=== PATIENT | female | born 1990 | race Hispanic/Latino ===

== ENCOUNTER 2018-10-05 00:35 | Emergency (ER) | payer OTHER | END 2018-10-05 01:35 | disposition home or self-care (01) | LOC: EDH 00:35 | DX: S06.0X0A Concussion without loss of consciousness, initial encounter (principal); S76.911A Strain of unspecified muscles, fascia and tendons at thigh level, right thigh, initial encounter; Z98.890 Other specified postprocedural states; V49.9XXA Car occupant (driver) (passenger) injured in unspecified traffic accident, initial encounter; Y93.89 Activity, other specified; Y92.89 Other specified places as the place of occurrence of the external cause; Y99.8 Other external cause status | CPT/HCPCS: 99281 ==

== ENCOUNTER 2023-03-04 19:44 | Emergency (ER) | payer BC, OTHER ==
[~2023-03-04] VITALS: Ht 152.4 cm; Wt 68.0 kg
[2023-03-05 01:07] LABS: RAPID GROUP A STREP negative (NEGATIVE)
[2023-03-05 01:10] LABS: SARS-CoV-2, RNA, NAAT NEGATIVE SARS CoV-2 (NEGATIVE)
[2023-03-05 01:16] LABS: INFLUENZA TYPE A Negative For Type A (NEGATIVE); INFLUENZA TYPE B Negative For Type B (NEGATIVE)
[2023-03-05] MEDS ORDERED: LACTATED RINGERS 1000ML 1,000 ML IV ONE (01:30)
[2023-03-05] MEDS ORDERED: GLUCAGON 1MG KIT 1 MG ML IV SCH (01:30)
[2023-03-05] MEDS ORDERED: METOCLOPRAMIDE 10 MG/2 ML VIAL IVP ONE (01:30)
[2023-03-05] MEDS ORDERED: NITROGLYCERIN 1GM OINT 1 INCH/1GM TD ONE (01:30)
[2023-03-05] MEDS ORDERED: FAMOTIDINE 20MG VIAL IV ONE (01:30)
[2023-03-05 01:44] LABS: HEMATOCRIT 36.6 % (36-48); MEAN CORPUSCULAR HEMOGLOBIN 24.9 pg (27.0-33.0); PLATELET COUNT (AUTO) 272 K/uL (130-400); RED BLOOD CELL COUNT(AUTO) 4.69 MIL/uL (4.00-5.50); RED CELL DISTRIBUTION WIDTH 15.5 % (11.0-15.5); WHITE BLOOD COUNT (AUTO) 10.1 K/uL (4.8-10.8)
[2023-03-05 01:53] LABS: CREATININE 0.7 mg/dL (0.5-1.5)
[2023-03-05] MEDS ORDERED: IOHEXOL-350 75 ML VIAL IV ONE (02:33)
[2023-03-05 06:00] VITALS: BP 120/63; PULSE 78; RESP 18; O2SAT 99
== END 2023-03-05 06:24 | disposition home or self-care (01) ==
LOC: EDH 19:44
DX: R13.10 Dysphagia, unspecified (principal); Z20.822 Contact with and (suspected) exposure to COVID-19
CPT/HCPCS: 99284; 87635; 80048; 84702; 85027; 87880; 87804 ×2; 36415; 96374; 70491; 96375; J1610; J7120; J3490; J2765; Q9967